=== PATIENT | male | born 1985 ===

== ENCOUNTER 2018-03-02 09:29 | Day surgery (SDC) | payer MEDICAID ==
[2018-03-02 11:31] VITALS: BMI 32.8
[2018-03-02] MEDS ORDERED: Lactated Ringer's 500 ML IV ONE (11:36)
[2018-03-02] MEDS ORDERED: Propofol 10 mg/ml Inj (20 ML) ONE (12:49)
[2018-03-02 13:51] VITALS: TEMP 96.8
[2018-03-02 13:55] VITALS: BP 122/58; PULSE 80; RESP 16; O2SAT 99
== END 2018-03-02 14:00 | disposition home or self-care (01) ==
LOC: H.ENDO 09:29
PROVIDERS: ATTEND Internal Medicine Gastroenterology
DX: R12 Heartburn (principal); K30 Functional dyspepsia; K29.70 Gastritis, unspecified, without bleeding; K31.819 Angiodysplasia of stomach and duodenum without bleeding; K20.9 Esophagitis, unspecified
CPT/HCPCS: 43239; 88305; J2001; J2704; J7120